=== PATIENT | male | born 1990 | race Hispanic/Latino ===

== ENCOUNTER 2020-09-06 07:15 | Observation (INO) | payer SELFPAY ==
[2020-09-06] MEDS ORDERED: SODIUM CHLORIDE 0.9% 1000ML 1,000 ML IVS ONE (07:40)
[2020-09-06] MEDS ORDERED: PROMETHAZINE HCL INJ 25 MG in SODIUM CHLORIDE 0.9% 50ML 50 ML IVPB ONE (07:40)
--- NOTE | 2020-09-06 08:38 | RAD ---
EXAM DESCRIPTION: Abdomen Series CLINICAL HISTORY: 30 years Male, abd pain, nv COMPARISON: None. FINDINGS: Abdominal x-ray images show normal bowel gas pattern. No abnormal bowel dilatation to suggest obstruction. No free air. No abnormal air-fluid levels on standing upright films. Chest x-ray shows clear lungs. Normal pulmonary vascularity. Heart size is normal. IMPRESSION: No acute process. Electronically signed by: Chaim Rivers MD 09/06/2020 8:36 AM ANESTHESIOLOGY TECHNOLOGIST
--- NOTE | 2020-09-06 09:14 | US ---
EXAM DESCRIPTION: Abdomen,Limited: ULTRASOUND. CLINICAL HISTORY: eval gb, nv ruq pain COMPARISON: None. TECHNIQUE: Transabdominal scanning: perez-scale mode. Doppler mode.. Technically difficult study due to patient's large body habitus. FINDINGS: Gallbladder: Enlarged measuring 11.1 x 5.9 cm. Multiple echogenic stones with acoustic posterior shadowing. 2 stones measuring 3.3 and 3.2 cm diameter. No fluid around the gallbladder. No wall thickening. 2.8 mm. Continued abdominal wall with transducer pressure. Common bile duct: caliber 6.1 mm borderline dilated. Liver: Heterogeneously increased echogenicity; contour liver capsule smooth where seen. No fluid around the liver. Intrahepatic biliary ducts normal caliber. Doppler hepatopedal flow and normal caliber portal vein.. 13 mm. Long axis right lobe 17.9 cm. Pancreas: Limited visualization. Diagnoses. Proximal abdominal aorta: 1.9 cm normal range.. IVC: visualized and normal caliber. Right kidney: long axis measures 11.3 cm; volume 148.9 ml. Cortical echogenicity is normal. Cortical thickness normal range.. No echogenic stones; no hydronephrosis. IMPRESSION: 1. Enlarged gallbladder with multiple echogenic stones (cholelithiasis) greater than 3 cm diameter. No wall thickening or fluid. Tender abdominal wall with transducer pressure, consistent with cholecystitis. Common bile duct borderline dilated. No ascites. 2. Fatty liver with physiologic ducks and vascularity. Smooth capsule and no ascites. Limited visualization of the pancreas. 3. Right kidney is unremarkable. Normal caliber of the proximal abdominal aorta and IVC. Electronically signed by: Rusty Frank MD 09/06/2020 9:13 AM [facility]
[2020-09-06] MEDS ORDERED: cefOXitin SODIUM 2 GM in SODIUM CHL 0.9% 50ML MIN-BAG+ 50 ML IVPB ONE (09:31)
--- NOTE | 2020-09-06 09:40 | ED.PDOC ---
History of Present Illness - General Chief Complaint: Abdominal Pain Stated Complaint: RUQ abdominal pain Time Seen by Provider: 09/06/20 07:19 Source: patient Exam Limitations: no limitations - History of Present Illness Initial Comments: The patient is a 30-year-old male presented emergency room secondary to increased abdominal pain as well as increased nausea and vomiting. The patient had actually started to have some abdominal pain as long as a month ago. It was however intermittent and sporadic. About 5 or 6 days ago the pain started getting worse and he was seen at [place] he had a CT scan done showing gallbladder with a significant number of stones. There was no evidence of any elevation of the liver function test at that point. No fever. White blood cell count at that time was around 9000. The patient was released at that time to follow-up with Dr. Barr here tomorrow actually. However over the last 2 to 3 days the patient's abdominal pain along with nausea and vomiting have increased significantly. The patient has very significant pain to the right upper quadrant. He does appear mildly dehydrated at least. He still denies any fev er. He has been throwing up what he reports is bile. Timing/Duration: unsure Severity: moderate Improving Factors: nothing Worsening Factors: eating Associated Symptoms: loss of appetite, malaise, nausea/vomiting Allergies/Adverse Reactions: Allergies NO KNOWN ALLERGY Allergy (Verified 09/06/20 07:33) Home Medications: Ambulatory Orders Acetaminophen W/ Codeine [Tylenol W/ CODEINE #3] 1 tab PO PRN 09/06/20 Amlodipine Besylate 5 mg PO DAILY 09/06/20 Review of Systems - Review of Systems Constitutional: States: no symptoms reported EENTM: States: no symptoms reported Respiratory: States: no symptoms reported Cardiology: States: no symptoms reported Gastrointestinal/Abdominal: States: abdominal pain, nausea, vomiting Genitourinary: States: no symptoms reported Musculoskeletal: States: no symptoms reported Skin: States: no symptoms reported Neurological: States: no symptoms reported Endocrine: States: no symptoms reported All other Systems: No Change from Baseline Past Medical History (General) - Patient Medical History Hx Stroke: No Hx Congestive Heart Failure: No Hx Hypertension: Yes Hx Diabetes: No Surgical History: no surgical history - Vaccination History Hx Influenza Vaccination: No - Social History Hx Tobacco Use: Yes Family Medical History - Family History Father Family History: Unknown Living Status: Unknown Physical Exam - Physical Exam General Appearance: Alert, Other - Uncomfortable Eye Exam: bilateral normal Ears, Nose, Throat: hearing grossly normal, normal pharynx Neck: full range of motion, supple Respiratory: lungs clear, normal breath sounds, no respiratory distress, no accessory muscle use Cardiovascular/Chest: normal peripheral pulses, regular rate, rhythm, no edema Peripheral Pulses: radial,right: 2+, radial,left: 2+ Gastrointestinal/Abdominal: other - Right upper quadrant tenderness to palpation. Morbid obesity. Rectal Exam: deferred Back Exam: no CVA tenderness, no vertebral tenderness Extremity: normal range of motion, non-tender, normal inspection, no pedal edema, normal capillary refill Neurologic: credit intern II-XII nml as tested, alert, normal mood/affect, oriented x 3 Skin Exam: normal color Comments: Vital Signs - 24 hr 09/06/20 09/06/20 09/06/20 07:29 08:00 09:00 Temperature 96.9 F L Pulse Rate [ 97 H 82 91 H Left Brachial] Respiratory 20 20 20 Rate Blood Pressure 149/109 174/126 145/119 [Left Arm] O2 Sat by Pulse 97 97 94 L Oximetry Progress - Progress Progress: 09/06/20 09:41 The patient is a 30-year-old male presented emergency room with what appears to be calculus cholecystitis. White blood cell count is rising when compared to 3 days ago. Liver function tests are also starting to rise slightly. The patient is being made n.p.o. He has been put on acid reducers, nausea medications and IV fluids. Additionally blood cultures being performed and we are starting Mefoxin on the patient. Dr. Barr has been contacted on this patient and will see him later this morning. Admit for continued care. joaquina spain [phone] - Results/Orders Results/Orders: Acute abdominal series appears benign. Moderate amount of stool. Right upper quadrant ultrasound shows a gallbladder with significant gallstones up to 3.3 cm in diameter. Borderline common bile duct at 6.1 mm. No significant pericholecystic fluid but tenderness with pressure of the transducer was noted. Laboratory Tests 09/06/20 09/06/20 09/06/20 07:40 07:40 07:40 WBC 11.0 H RBC 5.55 Hgb 15.0 Hct 43.3 MCV 78.0 L MCH 27.0 MCHC 34.7 RDW 13.6 Plt Count 290 MPV 8.0 Absolute Neuts (auto) 8.50 H Absolute Lymphs (auto) 1.60 Absolute Monos (auto) 0.70 Absolute Eos (auto) 0.20 Absolute Basos (auto) 0.10 Neutrophils % 76.9 Lymphocytes % 14.6 L Monocytes % 6.0 Eosinophils % 2.0 Basophils % 0.5 PT 10.3 INR 1.04 PTT (SP) 27.4 Sodium 136 Potassium 3.7 Chloride 101 Carbon Dioxide 24 Anion Gap 14.7 BUN 10 Creatinine 0.87 BUN/Creatinine Ratio 11.5 Random Glucose 117 H Serum Osmolality 272.0 L Lactic Acid Calcium 9.1 Magnesium Total Bilirubin 0.8 AST 103 H ALT 122 H Alkaline Phosphatase 106 Creatine Kinase 208 H* CK-MB (CK-2) 1.3 CK-MB (CK-2) % Not Reportable Troponin I < 0.02 Serum Total Protein 8.7 H Albumin 4.6 Globulin 4.1 H Albumin/Globulin Ratio 1.1 Amylase 54 Lipase TSH Urine Color Urine Appearance Urine pH Ur Specific [place] Urine Protein Urine Glucose (UA) Urine Ketones Urine Blood Urine Nitrite Urine Bilirubin Urine Urobilinogen Ur Leukocyte Esterase Urine RBC Urine WBC Ur Epithelial Cells Urine Bacteria 09/06/20 09/06/20 09/06/20 07:40 07:40 08:00 WBC RBC Hgb Hct MCV MCH MCHC RDW Plt Count MPV Absolute Neuts (auto) Absolute Lymphs (auto) Absolute Monos (auto) Absolute Eos (auto) Absolute Basos (auto) Neutrophils % Lymphocytes % Monocytes % Eosinophils % Basophils % PT INR PTT (SP) Sodium Potassium Chloride Carbon Dioxide Anion Gap BUN Creatinine BUN/Creatinine Ratio Random Glucose Serum Osmolality Lactic Acid 1.0 Calcium Magnesium 2.1 Total Bilirubin AST ALT Alkaline Phosphatase Creatine Kinase CK-MB (CK-2) CK-MB (CK-2) % Troponin I Serum Total Protein Albumin Globulin Albumin/Globulin Ratio Amylase Lipase 21 L TSH 5.47 Urine Color Yellow Urine Appearance Clear Urine pH 7.0 Ur Specific [place] 1.025 Urine Protein Negative Urine Glucose (UA) Negative Urine Ketones Negative Urine Blood Negative Urine Nitrite Negative Urine Bilirubin Negative Urine Urobilinogen 2.0 H Ur Leukocyte Esterase Negative Urine RBC 0 Urine WBC 0 Ur Epithelial Cells 0 Urine Bacteria 0 Departure - Departure Clinical Impression: Acute calculous cholecystitis Disposition: Admit Patient Condition: Fair Departure Forms: ED Discharge - Pt. Copy, Patient Portal Self Enrollment Referrals: Stefanie Wren MD [Primary Care Provider] - 1-2 Weeks Home Medications: Ambulatory Orders Acetaminophen W/ Codeine [Tylenol W/ CODEINE #3] 1 tab PO PRN 09/06/20 Amlodipine Besylate 5 mg PO DAILY 09/06/20 Decision To Admit - Decistion To Admit Decision to Admit Reason: Medical Nature Decision to Admit Date: 09/06/20 Decision to Admit Time: 09:42
[2020-09-06] MEDS ORDERED: MAGNESIUM SULFATE INJ 1 GM/2 ML VIAL IVPB ONE (10:00)
[2020-09-06] MEDS ORDERED: PROPOFOL 200 MG/20 ML VIAL IV ONE (10:00)
[2020-09-06] MEDS ORDERED: KETOROLAC TROMETHAMINE INJ 30 MG/ML VIAL IV ONE ×2 (10:00→10:55)
[2020-09-06] MEDS ORDERED: DEXAMETHASONE INJ 10 MG/ML VIAL IV ONE (10:00)
[2020-09-06] MEDS ORDERED: ePHEDrine SULF 50 MG/ML IV ONE (10:00)
[2020-09-06] MEDS ORDERED: LIDOCAINE 1% 10 ML VIAL INJ ONE (10:00)
--- NOTE | 2020-09-06 10:19 | HP ---
SUPERVISING PHYSICIAN: Deshawn Méndez MD CHIEF COMPLAINT: Acute cholecystitis. HISTORY OF PRESENT ILLNESS: Mr. Olivier is a 30-year-old male that has a history of hypertension. He started having some right upper quadrant pain earlier in the week and went to the Emergency Room. He was evaluated and was told he had gallstones. He was discharged from the Emergency Room, continued to have pain and went back on Wednesday. He was reevaluated and discharged. He followed up with his primary care physician, Dr. Wren in [place] who referred him to Dr. Barr for surgical consultation, which was scheduled today at 9 o'clock. Unfortunately, overnight he had severe worsening of pain at which time he presented back to the Emergency Room this morning. Abdominal ultrasound did show an enlarged gallbladder with multiple stones with no wall thickening or fluid. He was also noted to have a fatty liver. Dr. Barr was then consulted by Dr. Méndez, the ER physician, who at that time recommended the patient be placed in observation for planned laparoscopic cholecystectomy later today. He was placed in observation in stable condition. PAST MEDICAL HISTORY: 1. Hypertension. PAST SURGICAL HISTORY: No previous surgeries. MEDICATIONS: 1. Amlodipine 5 mg daily. ALLERGIES: NO KNOWN DRUG ALLERGIES. FAMILY HISTORY: Unremarkable and noncontributory to current admission. SOCIAL HISTORY: The patient lives in [place]. He currently works for a [employer]. He is with children. He does smoke cigarettes, approximately a pack a week and drinks alcohol on a rare occasion. He denies any illicit drug use. REVIEW OF SYSTEMS: CONSTITUTIONAL: Denies any fevers, chills, general malaise or unintentional weight loss. HEENT: Denies headaches, vision changes, sore throats, earaches, nasal congestion. RESPIRATORY: Denies coughing, wheezing or shortness of breath. CARDIOVASCULAR: Denies chest pain, palpitations or syncopal episodes. GASTROINTESTINAL: Right upper quadrant as noted in history of present illness with associated nausea, but denies vomiting. GENITOURINARY: Denies dysuria, hematuria, polyuria. MUSCULOSKELETAL: Denies joint swelling, arthralgias. SKIN: Denies lesions, rashes, moles or unexplained changes. NEUROLOGIC: Denies ataxia, seizures, syncopal episodes or other focal motor deficits. HEMATOLOGIC: Denies unexplained bleeding, bruising or transfusion reactions. PHYSICAL EXAMINATION: VITAL SIGNS: Temperature 98, pulse 83, blood pressure 136/93, respirations 16, oxygen saturation 98% on room air. GENERAL: On admission to the Medical/Surgical Floor, the patient is comfortable in no acute distress. He had been given pain medicine prior to admission. He is alert. HEENT: Tympanic membranes clear bilaterally. Oropharynx is pink, moist without any lesions. NECK: Supple, nontender with full range of motion. No jugular venous distention noted. RESPIRATORY: Lung sounds are clear to auscultation bilaterally without any rhonchi, wheezes or rales. CARDIOVASCULAR: Regular rate and rhythm without any appreciable murmurs, gallops, or rubs. ABDOMEN: Obese with noted right upper quadrant tenderness. No peritoneal signs, no point tenderness. He does have some rebound tenderness in the right upper quadrant with positive Bonilla. Bowel sounds are active. BACK: No CVA or vertebral tenderness. RECTAL: Deferred. EXTREMITIES: There is no cyanosis, clubbing or edema. NEUROLOGIC: Cranial nerves II-XII are grossly intact. The patient is alert and oriented times three. No obvious motor or sensory deficits. SKIN: Warm and dry. LABORATORY: White count 11,000, hemoglobin 15, hematocrit 43.3, platelet count 390,000. Differential is without a left shift. Coagulation studies show normal PT, PTT. Chemistries show normal electrolytes with potassium 3.7, creatinine 0.87. Initial glucose 117. Lactic acid 1.0, calcium 9.1, magnesium 2.1. Bilirubin normal at 0.8, AST elevated at 103, ALT 122. Creatinine kinase 208. Alkaline phosphatase normal. Troponin less than 0.02. Lipase normal at 21. TSH high at 0.47. Urinalysis unremarkable except for 2.0 urobilinogen. MICROBIOLOGY: Blood cultures pending. COVID swab was negative. RADIOLOGY: Abdominal ultrasound and abdominal x-ray were completed. Abdominal x-ray showed no acute process. This was followed up with abdominal ultrasound which showed enlarged gallbladder with multiple stones. No wall thickening or fluid. Common bile duct was borderline dilated, but no ascites. There was also note of fatty liver with physiologic ducts and vasculature, smooth capsule, no ascites. Please see that report for details. ASSESSMENT: 1. Acute cholecystitis. 2. Abdominal pain secondary to #1. 3. Hepatic steatosis as noted on ultrasound. 4. Elevated transaminases, likely secondary to fatty liver with no mention of alcohol abuse. 5. Nicotine addiction in a current smoker. 6. Obesity with body mass index 49. 7. Hypertension. PLAN: Mr. Olivier is going to be placed in observation for surgical consultation with Dr. Barr. I anticipate he will have a laparoscopic cholecystectomy this afternoon. Until that time, he will be NPO. I started him on lactated ringers at 125 an hour. He will get pain medicine in the form of morphine and Toradol as needed. He also got a dose of Protonix IV. I anticipate he will probably be discharged this afternoon, but we will await further consultation and instructions by Dr. Barr. Until the patient can transition to outpatient management, we will continue to monitor and treat as needed. #[id number] [facility]
[2020-09-06] MEDS ORDERED: MORPHINE SULFATE INJ 10 MG/ML VIAL IV PRN (10:32)
[2020-09-06] MEDS ORDERED: SODIUM CHLORIDE 0.9% (FLUSH) 10 ML SYG IV PRN (10:32)
[2020-09-06] MEDS ORDERED: PANTOPRAZOLE SODIUM IV 40 MG VIAL IV ONE (10:36)
[2020-09-06] MEDS ORDERED: ONDANSETRON INJ 4 MG/2 ML VIAL IV PRN (10:36)
[2020-09-06] MEDS ORDERED: LACTATED RINGERS 1,000 ML IVS PRN (10:36)
[2020-09-06] MEDS ORDERED: LACTATED RINGERS 1,000 ML ONE (10:57)
[2020-09-06] MEDS ORDERED: PANTOPRAZOLE SODIUM IV 40 MG VIAL ONE (10:57)
[2020-09-06] MEDS ORDERED: IV SET AND CAP CHANGE INJ INJ SCH (11:00)
[2020-09-06] MEDS ORDERED: BUPIVACAINE 0.25% W/EPI 50 ML VIAL INJ ONE ×2 (13:39→14:40)
[2020-09-06] MEDS ORDERED: BUPIVACAINE 0.25% INJ 30 ML VIAL INJ ONE (14:40)
[2020-09-06] MEDS ORDERED: SUGAMMADEX SODIUM 200 MG/2 ML VIAL IV ONE (16:29)
[2020-09-06] MEDS ORDERED: KETAMINE HCL 100 MG/ML VIAL ONE (16:29)
[2020-09-06] MEDS ORDERED: DEXMEDETOMIDINE HCL 200 MCG/2 ML INJ IV ONE (16:29)
[2020-09-06] MEDS ORDERED: fentaNYL CITRATE INJ 50 MCG/ML 2 ML AMP ONE (16:30)
[2020-09-06] MEDS ORDERED: ROCURONIUM BROMIDE 10 MG/ML VIAL ONE (16:30)
[2020-09-06] MEDS ORDERED: SUCCINYLCHOLINE CHLORIDE 200 MG/10 ML VIAL ONE (16:30)
[2020-09-06] MEDS ORDERED: MIDAZOLAM INJ 2 MG/2 ML VIAL ONE (16:31)
[2020-09-06] MEDS ORDERED: ELECTROLYTE-A 1,000 ML IVS ONE (16:58)
[2020-09-06] MEDS ORDERED: HYDROmorphone HCL INJ 2 MG/ML VIAL ONE (17:53)
[2020-09-06] MEDS ORDERED: ALBUTEROL SULFATE 2.5 MG/3 ML VIAL NEB ONE (18:25)
[2020-09-06] MEDS ORDERED: LEVALBUTEROL NEBS 1.25 MG/3 ML VIAL NEB ONE (18:27)
--- NOTE | 2020-09-06 18:33 | OP ---
DATE OF PROCEDURE: 09/06/20 PREOPERATIVE DIAGNOSIS: 1. Acute cholecystitis. POSTOPERATIVE DIAGNOSIS: 1. Acute cholecystitis. PROCEDURE: 1. Laparoscopic cholecystectomy. SURGEON: Lincoln Barr MD. ANESTHESIA: General. FINDINGS: He had extremely large gallbladder with 3 very, very large stones, but ultimately anatomy was clearly visualized through the triangle of Calot and no evidence of complications or bleeding. SPECIMEN: Gallbladder. PLAN: Admit. INDICATION: As stated. PROCEDURE: General anesthesia was induced. The patient was prepped and draped in sterile fashion. Marcaine 0.5% with epinephrine was used at all incision sites. While maintaining upward traction, a cut was made just superior to the umbilicus. Veress needle was introduced without difficulty. The abdomen was insufflated to an appropriate level with CO2 gas. The 5 mm trocar was placed followed by the camera. There was no evidence of bleeding or bowel injury. The patient was positioned and subxiphoid and lateral ports were placed. The gallbladder was extremely large with some chronic anterior adhesions. These were taken down until we got the infundibulum up. I did have to decompress the gallbladder. There was some cloudy, light green fluid with some sludge. This was all aspirated out to avoid spillage. We then began dissecting out the infundibulum. The duct presented itself first. It was triply ligated. We then triply ligated an artery. A small branch was bleeding, so it took 2 clips to control that. We did not have to clamp deeply. After we got the bleeding controlled, I examined and it revealed it was a branch off the cystic. Also some of the posterior tissue because of his large body habitus, extreme size of the stone, once we dissected out, we used a few extra clips to ensure no oozing that might be difficult to control due to the size of the gallbladder and the exposure we had right now. We ultimately dissected the gallbladder off the fossa in total. It was removed through the EndoCatch bag. We did open it and crush some of the large stones, though we still had to extent the fascial incision to get the gallbladder out. Once that was done, we examined the fossa. It remained hemostatic. The clips were intact. There was no bleeding or bile leakage. The area was irrigated. All aspirate was clear. The subxiphoid fascia was then closed with three different interrupted 0 Vicryl sutures using the curved needle. Final scan of the abdomen with the camera revealed everything looked good, no bleeding from the subxiphoid incision site. The trocars were removed. There was no bleeding from the trocar sites. The wounds were irrigated and closed with Monocryl. Dressings were applied. The patient was awakened and taken to Recovery in stable condition to be admitted and look for discharge in the morning. cc: MD SEAN Monroe
[2020-09-07] MEDS ORDERED: amLODIPine BESYLATE 5 MG TAB ONE (07:31)
[2020-09-07] MEDS ORDERED: amLODIPine BESYLATE 5 MG TAB PO SCH (09:00)
[2020-09-07 12:21] VITALS: BP 141/95; TEMP 97.8; O2SAT 98
--- NOTE | 2020-09-13 13:53 | SSS ---
SUPERVISING PHYSICIAN: Rahul Chaves MD DATE OF ADMISSION: 09/06/20 DATE OF DISCHARGE: 09/07/20 DISCHARGE DIAGNOSES: 1. Acute cholecystitis status post cholecystectomy, postoperative day #0. 2. Hypertension. HISTORY OF PRESENT ILLNESS: This is a 30-year-old male patient who came to the Emergency Room secondary to increased abdominal pain as well as nausea and vomiting. He actually started having abdominal pain about a month ago, but it was very sporadic. About 5 or 6 days prior coming to the Emergency Room, he was seen in [place] and had CT scan showing gallbladder that a significant number of stones. His lab work at that time was fairly stable. He had no fever. His WBCs were within normal limits. He was to followup with Dr. Barr for surgical consultation and actually had an appointment on the day of surgery to be followed up, but over the previous several days, his nausea and vomiting had increased, his abdominal pain increased and he came to the Emergency Room. His vital signs were stable, but his WBCs were elevated to 11,000 with hemoglobin 15, hematocrit 43.3. Electrolytes were within normal limits. AST was 103, ALT 122, creatinine kinase 208. Lipase 21, amylase 54. Urinalysis was unremarkable. He was admitted to the hospital and Dr. Barr planned on surgery the following day. PAST MEDICAL HISTORY: 1. Hypertension. PAST SURGICAL HISTORY: None. OUTPATIENT MEDICATIONS: 1. Tylenol with codeine. 2. Amlodipine. ALLERGIES: NO KNOWN DRUG ALLERGIES. FAMILY HISTORY: Noncontributory. SOCIAL HISTORY: He lives in [place]. He smokes cigarettes about half a pack daily. There is no history of ETOH or illicit drug use. REVIEW OF SYSTEMS: Negative except as per history of present illness. PHYSICAL EXAMINATION: VITAL SIGNS: Temperature 98.5, heart rate 94, blood pressure 128/82, respiratory rate 19, O2 saturation 95% on room air. GENERAL: This is a 30-year-old male patient lying in his hospital bed. He is in no acute distress. HEENT: Normocephalic, atraumatic. Pupils are equal and reactive. Oropharynx is clear. NECK: Supple without mass. RESPIRATORY: Essentially clear to auscultation bilaterally. CARDIOVASCULAR: Regular rate and rhythm. GASTROINTESTINAL: Abdomen is soft. It is diffuse tender. Bowel sounds are positive. He does have several laparoscopic incisions on his abdomen that are dry and intact. NEUROLOGIC: Awake, alert and oriented times three. Cranial nerves II-XII are grossly intact as tested. SKIN: [place], warm and dry. LABORATORY: Followup lab show WBCs 16,500, hemoglobin 13.8, hematocrit 40.2. Electrolytes are within normal limits. AST 126, ALT 144. Operative notes are per the EMR. HOSPITAL COURSE: The patient had surgery shortly after admission and was kept overnight. He had no problems postoperatively. He was up walking in the hallways and today, he will be discharged home in stable condition with followup with Dr. Wren in 1 to [address] Barr in 2 weeks. He is to resume his diet as tolerated, increase his activity as tolerated. He can shower in 2 days. He is to resume his previous medications. There are no new medications that have been ordered. He is to return to the hospital or followup with Dr. Wren or Dr. Barr for any problems or complications. DISCHARGE MEDICATIONS: 1. Tylenol #3. 2. Amlodipine. #[id number] [facility]
--- NOTE | 2020-09-18 10:06 | CONS ---
DATE OF CONSULTATION: 09/06/20 REASON FOR CONSULTATION: Acute cholecystitis. HISTORY OF PRESENT ILLNESS: This is a 30-year-old male who presented to the Emergency Department with severe right upper quadrant pain. He had had it a week earlier, sent home from the Emergency Room for outpatient evaluation. He recurred with severe pain and his primary care sent him to the Emergency Department for further evaluation. PAST MEDICAL HISTORY: 1. Hypertension. PAST SURGICAL HISTORY: None. MEDICATIONS: 1. Amlodipine. ALLERGIES: NO KNOWN DRUG ALLERGIES. SOCIAL HISTORY: He smokes and drinks only occasionally. He denies any illicit drugs. REVIEW OF SYSTEMS: CONSTITUTIONAL: No fevers, no chills. HEENT: No visual changes, sore throat. RESPIRATORY: No cough or wheeze. CARDIOVASCULAR: No chest pain or palpitations. GASTROINTESTINAL: Severe pain in right upper quadrant with nausea. He has had no vomiting. GENITOURINARY: No frequency, dysuria or hematuria. EXTREMITIES: No complaints. NEUROLOGIC: No complaints. PHYSICAL EXAMINATION: VITAL SIGNS: Afebrile. Pulse 90s. Blood pressure 140s/80s. Saturation 98% on room air. GENERAL: The patient is conscious, awake, alert and well-oriented, in mild distress. HEENT: Sclerae anicteric. Oral mucosa is moist. NECK: Supple. No adenopathy, jugular venous distention or thyromegaly. CHEST: Clear and equal bilaterally. No wheezing. HEART: Regular rate and rhythm. No murmurs, rubs or gallops. ABDOMEN: Obese. Right upper quadrant tenderness with Bonilla's sign. No evidence of diffuse peritonitis, no hernias, no CVA tenderness. EXTREMITIES: No cyanosis, clubbing or edema. NEUROLOGIC: Cranial nerves grossly intact. LABORATORY: White count 11, hematocrit 43, platelet count 290. BMP is normal. Liver function tests show elevated AST and ALT. RADIOLOGY: Abdominal ultrasound report shows enlarged gallbladder with multiple stones, fatty liver. IMPRESSION: 1. Acute cholecystitis, getting worse. PLAN: The patient has been consented for laparoscopic cholecystectomy. He agrees and wishes to proceed. #[id number] [facility]
== END 2020-09-07 12:00 | disposition home or self-care (01) ==
LOC: ER 07:15 → MS 10:17
PROVIDERS: ADMIT Nurse Practitioner Family; ATTEND Nurse Practitioner Acute Care
DX: K80.12 Calculus of gallbladder with acute and chronic cholecystitis without obstruction (principal); K76.0 Fatty (change of) liver, not elsewhere classified; R74.01 Elevation of levels of liver transaminase levels; I10 Essential (primary) hypertension; E66.9 Obesity, unspecified; F17.210 Nicotine dependence, cigarettes, uncomplicated; R11.2 Nausea with vomiting, unspecified; Z20.822 Contact with and (suspected) exposure to COVID-19; Z68.42 Body mass index [BMI] 45.0-49.9, adult; Z79.899 Other long term (current) drug therapy
CPT/HCPCS: 96367; 96365; 96375; J7611; J0694; J3010; J1170; J1885 ×2; J2550; J3490; J7030; A4216; J0330; J3475; J1100; J2250; J7050; J7614; J7120; 82553; 80053 ×2; 36415 ×4; 82150; 81001; 85025 ×2; 82550; 87040 ×2; 83690; 83735 ×2; 85730; 85610; 84443; 84484; 83605; 74019; 76775; 94760; 99285; G0378; 87635; 47562; 00790